=== PATIENT | female | born 1975 | race Caucasian/White ===

== ENCOUNTER 2019-06-16 15:10 | Emergency (ER) | payer OTHER ==
[~2019-06-16] VITALS: Ht 170.2 cm; Wt 65.9 kg
[2019-06-16 15:29] VITALS: Ht 170.2 cm; Wt 65.9 kg
[2019-06-16 15:52] LABS: APPEARANCE CLEAR (CLEAR); COLOR ORANGE (YELLOW)
[2019-06-16 15:55] LABS: BACTERIA FEW /hpf (NONE SEEN); EPITHELIAL CELLS 0-5 /hpf (0-5); RED CELLS - URINE 0-5 /hpf (0-5); WHITE CELLS - URINE 0-5 /hpf (0-5)
[2019-06-16 16:04] LABS: BASOPHILS 0.6 % (0-2); EOSINOPHILS 4.6 % (0-7); HEMATOCRIT 36.3 % (36.0-48.0); HEMOGLOBIN 12.4 g/dL (12-16); LYMPHOCYTES 30.3 % (15-50); MCH 28.7 pg (26.0-34.0); MCHC 34.2 g/dL (31.0-37.0); MEAN PLATELET VOLUME 11.5 fL (7.4-10.4); MONOCYTES 9.9 % (2-11); NEUTROPHILS 54.6 % (40-80); PLATELET COUNT 258 10x3/uL (130-400); RBC 4.32 10x6/uL (4.00-5.40); RDW 13.1 % (11.5-14.5); WBC 6.5 10x3/uL (4.8-10.8)
[2019-06-16 16:09] LABS: APTT 28.1 SECONDS (22.8-39.4); INR 0.99 (0.85-1.17); PROTIME 12.6 SECONDS (11.6-15.0)
[2019-06-16 16:14] LABS: ALBUMIN 3.7 g/dL (3.4-5.0); ALKALINE PHOSPHATASE 65 U/L (46-116); ALT (SGPT) 20 U/L (10-68); CALC OSMOLALITY 283 mosm/kg (275-300); CALCIUM 8.9 mg/dL (8.5-10.1); CARBON DIOXIDE 29.1 mmol/L (21.0-32.0); CHLORIDE - SERUM 106 mmol/L (98-107); CREATININE - SERUM 0.9 mg/dL (0.6-1.3); GLUCOSE 80 mg/dL (74-106); POTASSIUM - SERUM 3.9 mmol/L (3.5-5.1); PROTEIN - SERUM 6.6 g/dL (6.4-8.2); SODIUM 142 mmol/L (136-145); UREA NITROGEN 17 mg/dL (7-18); eGFR NON AFRICAN AMERICAN 72 mL/min (90-120)
[2019-06-16 16:26] LABS: CKMB 0.9 U/L (0.0-3.6); CREATINE KINASE 165 UL (21-215); MAGNESIUM - SERUM 2.1 mg/dL (1.8-2.4); PRO BNP 112 pg/mL (0-125)
[2019-06-16 16:27] LABS: TROPONIN-I < 0.017 ng/mL (0.000-0.060)
[2019-06-16 16:51] LABS: ERYTHROCYTE SEDIMENTATION RATE 3 mm/hr (0-20)
[2019-06-16 20:12] LABS: UDS - AMPHET NEGATIVE QUAL (NEGATIVE); UDS - BARB NEGATIVE QUAL (NEGATIVE); UDS - BENZO NEGATIVE QUAL (NEGATIVE); UDS - COCAINE NEGATIVE QUAL (NEGATIVE); UDS - OPIATE NEGATIVE QUAL (NEGATIVE); UDS - PCP NEGATIVE QUAL (NEGATIVE); UDS - THC NEGATIVE QUAL (NEGATIVE)
[2019-06-16] MEDS ORDERED: KEFLEX500 MG PO (20:33)
[2019-06-16] MEDS ORDERED: MACROBID100 MG PO (20:33)
[2019-06-16] MEDS ORDERED: CLEOCIN HCL300 MG PO (20:33)
[2019-06-16] MEDS ORDERED: DIFLUCAN150 MG PO (20:33)
[2019-06-16 20:54] VITALS: BP 114/74
--- NOTE | 2019-06-20 09:53 | EC ---
PATIENT:CARRIE SMYTH DATE OF SERVICE: 06/16/19 SEX: F MEDICAL RECORD: [id number] DATE OF : [birth year] LOCATION:[facility] AGE OF PATIENT: 43 ADMISSION DATE: 06/16/19 REFERRING PHYSICIAN: INTERPRETING PHYSICIAN: SOFYA BRUNO MD ECHOCARDIOGRAM REPORT ECHO CHARGES 4 ECHO COMPLETE Date: 06/16/19 CLINICAL DIAGNOSIS: ASSESS FOR PERICARDIA EFFUSION ECHOCARDIOGRAPHIC MEASUREMENTS (adult normal given) AC root (d.<3.7cm) 3.6 cm LV Septum d (<1.2 cm> 1.2 cm Valve Excursion 1.7 cm LV Septum (systole) 1.4 cm Left Atria (s.<4.0cm> 3.9 cm LVPW d(<1.2cm) 1.2 cm RV (d.<2.3cm) 3.2 cm LVPW (sytole) 1.5 cm LV diastole(<5.6CM) 4.8 cm MV E-F(>70mm/sec) cm LV systole 3.3 cm LVOT Diameter 1.7 cm MV exc.(>10mm) 1.8 cm Est.ejection fraction (50-75%) % DOPPLER: LVIT cm/sec A 53.0 cm/sec E 71.0 cm/sec LA cm/sec RVSP 28 mmHg LVOT 102 cm/sec AOP1/2T m/s Asc. Ao 118 cm/sec RVOT 51 cm/sec RA cm/sec PA 99 cm/sec AV Gradient Peak 5.57 mmHg AV Mean 2.80 mmHg AV Area 2.1 cm MV Gradient Peak 5.12 mmHg MV Mean 1.44 mmHg MV Area cm COMMENTS: [employer] Power Plant Engineer: Courtney DELA CRUZ Garment Fitter: 1 Dr. Bruno TAPE# PACS Pericardial Effusion N DATE OF SERVICE: 06/16/2019 FINDINGS: 1. Left ventricular chamber size is within normal limits. Left ventricular systolic function is normal. Overall ejection fraction estimated at 65%. 2. Left atrium, right atrium and right ventricular chamber sizes are within normal limits. 3. Valvular structures have normal structure and motion. 4. Doppler interrogation reveals [id number] aortic insufficiency, qfgng-[id number] mitral regurgitation, [id number] tricuspid regurgitation, no ECHOCARDIOGRAM REPORT [id number] CARRIE SMYTH other valvular insufficiency or stenosis. Pulmonary systolic pressure is estimated at 28 mmHg. 5. No evidence of pericardial effusion or left ventricular thrombus. TRANSINT:[id number] Voice Confirmation ID: [id number] DOCUMENT ID: [id number] SOFYA BRUNO MD at 0953 CC: [id number] DICTATION DATE: 06/16/192007 MANPOWER DEVELOPMENT ADVISOR: 06/17/19 0011 DEP ER 06/16/19 [place] [id number]
== END 2019-06-16 20:54 | disposition home or self-care (01) ==
LOC: D.ER 15:10
PROVIDERS: Family Medicine
DX: L02.213 Cutaneous abscess of chest wall (principal)